=== PATIENT | female | born 1980 | race Caucasian/White ===

== ENCOUNTER 2020-12-16 03:19 | Emergency (ER) | payer MEDICAID ==
[~2020-12-16] VITALS: Ht 162.6 cm; Wt 100.5 kg
[2020-12-16] MEDS ORDERED: clindamycin 600mg/D5W 50ml 50 ML IV ONE (04:40)
[2020-12-16] MEDS ORDERED: ketorolac trometh. 30mg/ml inj. IV ONE (04:40)
[2020-12-16 04:48] LABS: BASOPHILS % (AUTO) 0.5 % (0-1); EOSINOPHILS # (AUTO) 0.1 X10'3 (0-0.9); EOSINOPHILS % (AUTO) 0.6 % (0-6); HEMATOCRIT 37.8 % (35.0-45.0); HEMOGLOBIN 12.8 g/dl (12.0-16.0); LYMPHOCYTES # (AUTO) 1.2 X10'3 (1.1-4.8); LYMPHOCYTES % (AUTO) 13.8 % (21-51); MEAN CORPUSCULAR HEMOGLOBIN 31.2 PG (27.0-31.0); MEAN CORPUSCULAR HGB CONC 33.7 g/dL (33.0-36.5); MEAN CORPUSCULAR VOLUME 92.6 FL (78-98); MEAN PLATELET VOLUME 9.4 FL (7.4-10.4); MONOCYTES # (AUTO) 0.6 X10'3 (0-0.9); MONOCYTES % (AUTO) 7.4 % (2-12); NEUTROPHILS # (AUTO) 6.7 X10'3 (1.8-7.7); NEUTROPHILS % (AUTO) 77.7 % (42-75); PLATELET COUNT 229 X10'3 (140-440); RED BLOOD COUNT 4.09 X10'6 (4.20-5.60); RED CELL DISTRIBUTION WIDTH 13.2 % (11.5-14.5); WHITE BLOOD COUNT 8.6 X10'3 (4.5-11.0)
[2020-12-16 04:51] LABS: ALANINE AMINOTRANSFERASE 18 U/L (12-78); ALBUMIN 3.2 G/DL (3.4-5.0); ALBUMIN/GLOBULIN RATIO 0.6 (1.1-1.5); ALKALINE PHOSPHATASE 98 IU/L (46-116); ANION GAP 10 (8-16); ASPARTATE AMINO TRANSFERASE 7 U/L (10-37); BILIRUBIN,TOTAL 0.5 MG/DL (0.1-1.0); BLOOD UREA NITROGEN 19 MG/DL (7-18); BUN/CREATININE RATIO 10.9 (6.6-38.0); CALCIUM 9.1 MG/DL (8.5-10.1); CHLORIDE 104 MMOL/L (99-107); CREATININE 1.74 MG/DL (0.40-0.90); GLUCOSE 114 MG/DL (70-104); MAGNESIUM 2.2 MG/DL (1.5-2.4); POTASSIUM 3.6 MMOL/L (3.5-5.1); SODIUM 137 MMOL/L (135-145); TOTAL CARBON DIOXIDE 22.8 MMOL/L (24-32); TOTAL PROTEIN 8.3 G/DL (6.4-8.2); eGFR 32 ML/MIN
[2020-12-16] MEDS ORDERED: iohexol 300mg/ml 100ml inj. ONE (04:56)
[2020-12-16] MEDS ORDERED: normal saline 1000ml 1,000 ML IV ONE (05:05)
[2020-12-16] MEDS ORDERED: CLIN150C8 PO (05:47)
[2020-12-16 07:25] VITALS: BP 113/67
== END 2020-12-16 07:26 | disposition home or self-care (01) ==
LOC: ER 03:21
DX: L02.211 Cutaneous abscess of abdominal wall (principal); L03.311 Cellulitis of abdominal wall; Z79.2 Long term (current) use of antibiotics
CPT/HCPCS: 36415; 74177; 80053; 83735; 84145; 85025; 96365; 96375; 99285; J1885; J7030; Q9967; J3490